=== PATIENT | female | born 1975 | race Caucasian/White ===

== ENCOUNTER 2022-02-28 02:03 | Emergency (ER) | payer SELFPAY ==
[2022-02-28 02:32] LABS: BASOPHIL 0.2 % (0-2); EOSINOPHIL 0.3 % (0-5); HCT 42.1 % (37.0-47.0); HGB 13.7 g/dl (12.5-16.0); LYMPHOCYTE 13.5 % (15-48); MCH 27.6 pg (25.0-31.0); MCHC 32.5 g/dL (32.0-36.0); MCV 84.9 fL (78.0-100.0); MONOCYTE 7.1 % (0-12); MPV 8.7 fL (6.0-9.5); NEUTROPHIL 78.6 % (41-80); NRBC 0; PLT 299 K/uL (150-400); RBC 4.96 M/uL (4.20-5.40); RDW 13.6 % (11.5-14.0); WBC 9.1 K/uL (4.0-10.5)
[2022-02-28 02:54] LABS: ALBUMIN 3.8 g/dL (3.4-5.0); ALKALINE PHOSHATASE 162 U/L (46-116); ALT 492 U/L (14-59); AST 766 U/L (15-37); BUN 8 mg/dL (7-18); BUN/CREAT RATIO (CALC) 10.7 RATIO; CHLORIDE 101 mmol/L (98-107); CO2 (BICARBONATE) 30 mmol/L (21-32); CREATININE 0.75 mg/dL (0.51-0.95); GLUCOSE 174 mg/dL (74-106); LIPASE >2250 U/L (73-393); POTASSIUM 3.8 mmol/L (3.5-5.1); TOTAL PROTEIN 7.8 g/dL (6.4-8.2)
[2022-02-28] MEDS ORDERED: ONDANSETRON ODT4 MG PO (05:17)
[2022-02-28] MEDS ORDERED: PERCOCET 5-3251 EACH PO (05:17)
== END 2022-02-28 05:40 | disposition left against medical advice (07) ==
LOC: FER 02:03
PROVIDERS: Emergency Medicine
DX: K80.50 Calculus of bile duct without cholangitis or cholecystitis without obstruction (principal); Z53.29 Procedure and treatment not carried out because of patient's decision for other reasons; Z28.310 Unvaccinated for COVID-19
CPT/HCPCS: 36415; 80053; 83690; 85025; J1170; J1885; J2405; J2543; J7030; Q9967